=== PATIENT | male | born 1955 | race Caucasian/White ===

== ENCOUNTER 2017-03-02 10:12 | Emergency (ER) | payer MEDICARE, MEDICAID ==
[~2017-03-02] VITALS: Ht 177.8 cm; Wt 114.0 kg
[2017-03-02 10:26] VITALS: BP 143/104
[2017-03-02] MEDS ORDERED: SODIUM CHLORIDE FLUSH 10ML SYR IVF ONE (10:30)
[2017-03-02] MEDS ORDERED: ASPIRIN 81 MG TABLET CHEW PO ONE (10:30)
[2017-03-02 10:40] LABS: BASOPHILS # (AUTO) 0.04 x10^3/uL (0-0.1); BASOPHILS % (AUTO) 0 % (0-1); EOSINOPHILS # (AUTO) 0.27 x10^3/uL (0-0.4); EOSINOPHILS % (AUTO) 3 % (1-7); LYMPHOCYTES # (AUTO) 1.95 x10^3/uL (1-3.4); LYMPHOCYTES % (AUTO) 20 % (22-44); MD NO; MEAN CORPUSCULAR HEMOGLOBIN 28.4 pg (27.5-34.5); MEAN CORPUSCULAR HGB CONC 33.2 g/dL (33.2-36.2); MEAN CORPUSCULAR VOLUME 85.5 fL (81-97); MEAN PLATELET VOLUME 9.5 fL (7.4-10.4); MONOCYTES # (AUTO) 0.86 x10^3/uL (0.2-0.8); MONOCYTES % (AUTO) 9 % (2-9); NEUTROPHILS # (AUTO) 6.78 x10^3/uL (1.8-6.8); NEUTROPHILS % (AUTO) 69 % (42-75); PLATELET COUNT 246 x10^3/uL (130-400); RED BLOOD COUNT 5.58 x10^6/uL (4.38-5.82); RED CELL DISTRIBUTION WIDTH 13.9 % (9.4-14.8)
[2017-03-02 10:52] LABS: ALANINE AMINOTRANSFERASE 21 U/L (12-78); ALBUMIN 3.7 g/dL (3.4-5.0); ANION GAP 5 mmol/L (5-15); CALCIUM 8.6 mg/dL (8.5-10.1); CHLORIDE 111 mmol/L (98-107); CREATININE 0.97 mg/dL (0.7-1.3)
[2017-03-02] MEDS ORDERED: ASPIRIN 81 MG TABLET CHEW ONE (10:54)
[2017-03-02 10:56] LABS: ALKALINE PHOSPHATASE 75 U/L (45-117); BILIRUBIN,TOTAL 0.4 mg/dL (0.2-1.0); T4 (THYROXINE) 10.1 mcg/dL (4.5-12.1); TROPONIN I < 0.015 ng/mL (0.000-0.045)
[2017-03-02 11:00] LABS: MICROSCOPIC NOT IND
[2017-03-02 11:00] LABS: INTERNATIONAL NORMALIZED RATIO 0.96 (0.93-1.1)
[2017-03-02] MEDS ORDERED: PLEASE ENTER HEIGHT AND WEIGHT MC SCH (11:00)
[2017-03-02] MEDS ORDERED: PLEASE ENTER ALLERGIES MC SCH (11:00)
[2017-03-02] MEDS ORDERED: CHOL2000 PO (11:19)
[2017-03-02] MEDS ORDERED: HYDR-3307 PO (11:19)
[2017-03-02] MEDS ORDERED: AMLO5TAB2 PO (11:19)
[2017-03-02] MEDS ORDERED: ASPI-496 PO (11:19)
[2017-03-02] MEDS ORDERED: LISI40TA PO (11:19)
[2017-03-02] MEDS ORDERED: GABA800T2 PO (11:19)
[2017-03-02] MEDS ORDERED: TAMS0.4C2 PO (11:19)
[2017-03-02] MEDS ORDERED: HYDROcodone/APAP 10/325 MG TABLET ONE (11:46)
[2017-03-02] MEDS ORDERED: HYDROcodone/APAP 10/325 MG TABLET PO ONE (12:00)
[2017-03-02] MEDS ORDERED: DABIGATRAN 150 MG CAPSULE PO ONE (12:30)
== END 2017-03-02 12:52 | disposition home or self-care (01) ==
LOC: ED 10:43
DX: I48.91 Unspecified atrial fibrillation (principal); I25.10 Atherosclerotic heart disease of native coronary artery without angina pectoris; G89.29 Other chronic pain; M54.9 Dorsalgia, unspecified; I11.0 Hypertensive heart disease with heart failure; I50.9 Heart failure, unspecified
CPT/HCPCS: 36415; 71045; 80053; 81003; 83735; 83880; 84436; 84443; 84484; 85025; 85610; 85651; 85730; 93005; 99285

== ENCOUNTER → 2017-08-21 | Outpatient (CLI) | payer MEDICARE, MEDICAID ==
[~2017-08-21] MED LIST: AMLO5TAB2 PO; ASPI-496 PO; CHOL2000 PO; DABI75CA3 PO; FURO20TA3 PO; GABA800T2 PO; HYDR-3307 PO; LISI40TA PO; MAGN400T7 PO; MULT-224 PO; TAMS0.4C2 PO; TIZA4TAB PO
[2017-08-21 15:38] LABS: MICROSCOPIC NOT IND
[2017-08-21 15:44] LABS: BASOPHILS # (AUTO) 0.04 x10^3/uL (0-0.1); BASOPHILS % (AUTO) 0 % (0-1); EOSINOPHILS # (AUTO) 0.27 x10^3/uL (0-0.4); EOSINOPHILS % (AUTO) 3 % (1-7); LYMPHOCYTES # (AUTO) 1.76 x10^3/uL (1-3.4); LYMPHOCYTES % (AUTO) 18 % (22-44); MD NO; MEAN CORPUSCULAR HEMOGLOBIN 28.2 pg (27.5-34.5); MEAN CORPUSCULAR HGB CONC 32.9 g/dL (33.2-36.2); MEAN CORPUSCULAR VOLUME 85.8 fL (81-97); MEAN PLATELET VOLUME 9.4 fL (7.4-10.4); MONOCYTES # (AUTO) 0.82 x10^3/uL (0.2-0.8); MONOCYTES % (AUTO) 8 % (2-9); NEUTROPHILS # (AUTO) 7.06 x10^3/uL (1.8-6.8); NEUTROPHILS % (AUTO) 71 % (42-75); PLATELET COUNT 233 x10^3/uL (130-400); RED BLOOD COUNT 5.23 x10^6/uL (4.38-5.82); RED CELL DISTRIBUTION WIDTH 13.2 % (9.4-14.8)
[2017-08-21 15:54] LABS: HCT (SEDRATE) 44.9 % (39.2-51.8)
[2017-08-21 15:55] LABS: INTERNATIONAL NORMALIZED RATIO 0.96 (0.93-1.1)
[2017-08-21 15:56] LABS: ALANINE AMINOTRANSFERASE 29 U/L (12-78); ALBUMIN 3.5 g/dL (3.4-5.0); ANION GAP 6 mmol/L (5-15); CALCIUM 8.4 mg/dL (8.5-10.1); CHLORIDE 110 mmol/L (98-107); CREATININE 0.92 mg/dL (0.7-1.3)
[2017-08-21 15:58] LABS: ALKALINE PHOSPHATASE 76 U/L (45-117); BILIRUBIN,TOTAL 0.3 mg/dL (0.2-1.0)
== END | disposition home or self-care (01) ==
LOC: STAR 14:23 → MERGE 15:00
PROVIDERS: ATTEND Orthopaedic Surgery Orthopaedic Surgery of the Spine
DX: Z01.818 Encounter for other preprocedural examination (principal); I10 Essential (primary) hypertension; I44.4 Left anterior fascicular block; M47.817 Spondylosis without myelopathy or radiculopathy, lumbosacral region; M48.061 Spinal stenosis, lumbar region without neurogenic claudication; E65 Localized adiposity
CPT/HCPCS: 36415; 71046; 80053; 81003; 85025; 85610; 85651; 85730; 93005

== ENCOUNTER 2018-12-19 14:52 | Outpatient (CLI) | payer MEDICARE, MEDICAID ==
[~2018-12-19 14:52] MED LIST changes: +AMLO-150 PO; -AMLO5TAB2 PO; +FLUT9.9S NS; -GABA800T2 PO; +GABA800T5 PO; -HYDR-3307 PO; +HYDR-36 PO; +LISI-170 PO; -MAGN400T7 PO; +MAGN400T9 PO; -MULT-224 PO; +MULT-642 PO; -TIZA4TAB PO; +TIZA4TAB2 PO
[2018-12-19] MEDS ORDERED: potassium PO (15:20)
[2018-12-19 15:57] LABS: BASOPHILS # (AUTO) 0.04 x10^3/uL (0-0.1); BASOPHILS % (AUTO) 0 % (0-1); EOSINOPHILS # (AUTO) 0.33 x10^3/uL (0-0.4); EOSINOPHILS % (AUTO) 3 % (1-7); LYMPHOCYTES # (AUTO) 1.95 x10^3/uL (1-3.4); LYMPHOCYTES % (AUTO) 19 % (22-44); MD NO; MEAN CORPUSCULAR HEMOGLOBIN 28.8 pg (27.5-34.5); MEAN CORPUSCULAR HGB CONC 32.7 g/dL (33.2-36.2); MEAN CORPUSCULAR VOLUME 88.2 fL (81-97); MEAN PLATELET VOLUME 9.8 fL (7.4-10.4); MONOCYTES # (AUTO) 0.73 x10^3/uL (0.2-0.8); MONOCYTES % (AUTO) 7 % (2-9); NEUTROPHILS % (AUTO) 71 % (42-75); PLATELET COUNT 237 x10^3/uL (130-400); RED BLOOD COUNT 5.51 x10^6/uL (4.38-5.82); RED CELL DISTRIBUTION WIDTH 14.4 % (9.4-14.8)
[2018-12-19 15:58] LABS: HCT (SEDRATE) 48.5 % (39.2-51.8)
[2018-12-19 16:01] LABS: ALANINE AMINOTRANSFERASE 29 U/L (12-78); ALBUMIN 3.8 g/dL (3.4-5.0); ANION GAP 5 mmol/L (5-15); CALCIUM 8.7 mg/dL (8.5-10.1); CHLORIDE 111 mmol/L (98-107)
[2018-12-19 16:02] LABS: INTERNATIONAL NORMALIZED RATIO 1.13 (0.93-1.1); PROTHROMBIN TIME 11.8 Seconds (9.6-11.5)
[2018-12-19 16:03] LABS: ALKALINE PHOSPHATASE 82 U/L (45-117); BILIRUBIN,TOTAL 0.3 mg/dL (0.2-1.0); TOTAL PROTEIN 7.4 g/dL (6.4-8.2)
[2018-12-19 16:37] LABS: HEMOGLOBIN A1C 5.7 % (4.2-6.3)
== END 2018-12-19 23:59 | disposition home or self-care (01) ==
LOC: STAR 14:52
PROVIDERS: ATTEND Orthopaedic Surgery Orthopaedic Surgery of the Spine
DX: Z01.818 Encounter for other preprocedural examination (principal); M43.16 Spondylolisthesis, lumbar region; M54.16 Radiculopathy, lumbar region; F12.21 Cannabis dependence, in remission; Z87.891 Personal history of nicotine dependence
CPT/HCPCS: 36415; 80053; 83036; 85025; 85610; 85651; 85730; 93005

== ENCOUNTER 2018-12-24 07:28 | Inpatient (IN) | payer MEDICARE, MEDICAID ==
[~2018-12-24] VITALS: Ht 177.8 cm; Wt 116.5 kg
[~2018-12-24 07:28] MED LIST changes: +potassium PO
[2018-12-24] MEDS ORDERED: LACTATED RINGERS 1,000 ML IV SCH (08:15)
[2018-12-24] MEDS ORDERED: ACETAMINOPHEN 500 MG TABLET PO ONE (08:30)
[2018-12-24] MEDS ORDERED: LABETALOL 5MG/ML, 20ML IV PRN ×2 (08:30→15:30)
[2018-12-24] MEDS ORDERED: ONDANSETRON 2MG/ML, 2ML IV PRN ×2 (08:30→15:30)
[2018-12-24] MEDS ORDERED: hydrALAzine 20 MG/ML, 1ML IV PRN (08:30)
[2018-12-24] MEDS ORDERED: MEPERIDINE/PF 25MG/ML,1ML IVPush PRN (08:30)
[2018-12-24] MEDS ORDERED: DIPHENHYDRAMINE 50 MG/ML, 1ML IVPush PRN ×2 (08:30→15:30)
[2018-12-24] MEDS ORDERED: HYDROmorphone 2 MG/ML, 1ML IVPush PRN (08:30)
[2018-12-24] MEDS ORDERED: OXYcodone 5 MG/5 ML ORAL.SOL UDC PO PRN (08:30)
[2018-12-24] MEDS ORDERED: GABAPENTIN 300 MG CAPSULE PO ONE (08:30)
[2018-12-24] MEDS ORDERED: OXYcodone IR 5MG TABLET PO ONE (08:30)
[2018-12-24] MEDS ORDERED: LIDOCAINE-MPF 1%, 2ML INFIL ONE (08:30)
[2018-12-24] MEDS ORDERED: METOCLOPRAMIDE 5 MG/ML, 2ML IV PRN (08:30)
[2018-12-24] MEDS ORDERED: VANCOMYCIN PMX 1GM/200ML 200 ML IV STA (08:38)
[2018-12-24 09:05] LABS: INTERNATIONAL NORMALIZED RATIO 1.01 (0.93-1.1); PROTHROMBIN TIME 10.6 Seconds (9.6-11.5)
[2018-12-24] MEDS ORDERED: GABAPENTIN 300 MG CAPSULE ONE (09:12)
[2018-12-24] MEDS ORDERED: OXYcodone IR 5MG TABLET ONE (09:12)
[2018-12-24] MEDS ORDERED: ACETAMINOPHEN 500 MG TABLET ONE (09:12)
[2018-12-24] MEDS ORDERED: TRANEXAMIC ACID 100 MG/ML, 10ML ONE ×2 (09:35)
[2018-12-24] MEDS ORDERED: BUPIVACAINE/PF 0.5% ONE (09:35)
[2018-12-24] MEDS ORDERED: VANCOMYCIN 1,000 MG ONE (09:35)
[2018-12-24] MEDS ORDERED: THROMBIN 5,000 UNIT VIAL TP ONE (09:35)
[2018-12-24] MEDS ORDERED: EPINEPHRINE 1 MG/ML, 1ML ONE (09:35)
[2018-12-24] MEDS ORDERED: THROMBIN SPRAY 20,000 UNIT SPRAY TP ONE (09:35)
[2018-12-24] MEDS ORDERED: BACITRACIN 50,000 UNIT ONE (09:36)
[2018-12-24] MEDS ORDERED: PROPOFOL 10 MG/ML, 50ML ONE (10:02)
[2018-12-24] MEDS ORDERED: DEXAMETHASONE 4 MG/ML, 1ML ONE (10:02)
[2018-12-24] MEDS ORDERED: ROCURONIUM 10 MG/ML,10ML ONE (10:02)
[2018-12-24] MEDS ORDERED: MIDAZOLAM 1 MG/ML, 2ML ONE (10:02)
[2018-12-24] MEDS ORDERED: ONDANSETRON 2MG/ML, 2ML ONE (10:02)
[2018-12-24] MEDS ORDERED: PROPOFOL 10 MG/ML, 20ML ONE (10:02)
[2018-12-24] MEDS ORDERED: LIDOCAINE-MPF 2% ,5ML ONE (10:02)
[2018-12-24] MEDS ORDERED: SUCCINYLCHOLINE 20 MG/ML, 10ML ONE (10:02)
[2018-12-24] MEDS ORDERED: FENTANYL PF 100 MCG/2ML ONE (13:48)
[2018-12-24] MEDS ORDERED: OXYcodone 5 MG/5 ML ORAL.SOL UDC ONE (13:49)
[2018-12-24] MEDS: FENTANYL PF 100 MCG/2ML IV PRN ×2 (13:51→14:14)
[2018-12-24] MEDS ORDERED: BISACODYL 10 MG SUPP PR PRN (15:30)
[2018-12-24] MEDS ORDERED: MAGNESIUM HYDROXIDE 8%, 30ML UDC PO PRN (15:30)
[2018-12-24] MEDS ORDERED: KETOROLAC 30 MG/1 ML IV PRN (15:30)
[2018-12-24] MEDS ORDERED: PHARMACY MAY ADJ FOR RENAL FX MC PRN (15:30)
[2018-12-24] MEDS ORDERED: MORPHINE SULFATE 4 MG/ML, 1ML IV PRN (15:30)
[2018-12-24] MEDS ORDERED: DIPHENHYDRAMINE 25 MG CAPSULE PO PRN (15:30)
[2018-12-24] MEDS ORDERED: DIAZEPAM 5 MG/ML, 2ML IV PRN (15:30)
[2018-12-24] MEDS ORDERED: PROMETHAZINE 25 MG/ML, 1ML IM PRN (15:30)
[2018-12-24] MEDS ORDERED: OXYcodone IR 5MG TABLET PO PRN (15:30)
[2018-12-24] MEDS ORDERED: DIAZEPAM 5 MG TABLET PO PRN (15:30)
[2018-12-24] MEDS ORDERED: DIPHENHYDRAMINE 50 MG/ML, 1ML IM PRN (15:30)
[2018-12-24] MEDS ORDERED: ACETAMINOPHEN 500 MG TABLET PO PRN (16:00)
[2018-12-24] MEDS ORDERED: ACETAMINOPHEN 650 MG SUPP PR PRN (16:00)
[2018-12-24] MEDS ORDERED: METHOCARBAMOL 1,000 MG in DEXTROSE 5% 100 ML IV ONE (16:00)
[2018-12-24] MEDS ORDERED: DEXAMETHASONE 4 MG/ML, 1ML IV PRN (16:00)
[2018-12-24] MEDS: GABAPENTIN 400 MG CAPSULE PO SCH ×2 (17:20→21:00)
[2018-12-24] MEDS: CEFAZOLIN PMX 2GM/50ML 50 ML IVPB SCH (19:06)
[2018-12-24 20:22] VITALS: BP 119/76
[2018-12-24] MEDS: D5%-0.9% NACL+KCL 20MEQ 1,000 ML IV SCH (20:30)
[2018-12-24] MEDS ORDERED: ZOLPIDEM 5MG TABLET PO PRN (21:00)
[2018-12-24 23:50] VITALS: BP 119/78
[2018-12-25] MEDS: OXYcodone IR 5MG TABLET PO PRN (01:45)
[2018-12-25] MEDS: CEFAZOLIN PMX 2GM/50ML 50 ML IVPB SCH ×2 (01:45→23:50)
[2018-12-25 03:30] VITALS: BP 130/82
[2018-12-25] MEDS: METHOCARBAMOL 750 MG in DEXTROSE 5% 100 ML IV SCH ×3 (03:43→21:04)
[2018-12-25 04:42] LABS: MEAN CORPUSCULAR HEMOGLOBIN 28.9 pg (27.5-34.5); MEAN CORPUSCULAR HGB CONC 32.6 g/dL (33.2-36.2); MEAN CORPUSCULAR VOLUME 88.6 fL (81-97); MEAN PLATELET VOLUME 9.3 fL (7.4-10.4); PLATELET COUNT 257 x10^3/uL (130-400); RED CELL DISTRIBUTION WIDTH 14.7 % (9.4-14.8)
[2018-12-25 05:42] LABS: MD YES
[2018-12-25 05:43] LABS: <PLATELET ESTIMATE> ADEQUATE; <PLT MORPHOLOGY> NORMAL PLT MORPH; <RBC MORPHOLOGY> NORMAL; BAND#(MANUAL) 0.37 x10^3/uL; BANDS%(MANUAL) 2 % (0-7); LYMPH#(MANUAL) 1.85 x10^3/uL (1-3.4); LYMPHS% (MANUAL) 10 % (22-44); MONOS#(MANUAL) 1.11 x10^3/uL (0.3-2.7); MONOS% (MANUAL) 6 % (2-9); SEG#(MANUAL) 15.17 x10^3/uL (1.8-6.8); SEGS% (MANUAL) 82 % (42-75)
[2018-12-25] MEDS: D5%-0.9% NACL+KCL 20MEQ 1,000 ML IV SCH ×2 (05:44→16:17)
[2018-12-25 07:28] VITALS: BP 113/74
[2018-12-25] MEDS: GABAPENTIN 400 MG CAPSULE PO SCH ×3 (09:26→21:04)
[2018-12-25] MEDS: AMLODIPINE 5 MG TABLET PO SCH (09:27)
[2018-12-25] MEDS: SENNA/DOCUSATE TABLET PO SCH (09:28)
[2018-12-25] MEDS: TAMSULOSIN 0.4 MG CAP.ER.24H PO SCH (09:28)
[2018-12-25] MEDS: MAGNESIUM OXIDE 400 MG TABLET PO SCH (09:29)
[2018-12-25] MEDS: CHOLECALCIFEROL 1,000 UNIT TABLET PO SCH (09:29)
[2018-12-25] MEDS: LISINOPRIL 20 MG TABLET PO SCH (09:30)
[2018-12-25] MEDS: POTASSIUM CHLORIDE 20 MEQ TAB.ER.PRT PO SCH (09:30)
[2018-12-25] MEDS: MULTIVITAMIN 1 TABLET PO SCH (09:31)
[2018-12-25] MEDS: FUROSEMIDE 20 MG TABLET PO SCH (09:32)
[2018-12-25] MEDS: FLUTICASONE NASAL SPRAY 16GM NAS SCH (09:35)
[2018-12-25 12:24] VITALS: BP 105/71
[2018-12-25 18:58] VITALS: BP 100/66
[2018-12-25] MEDS: SODIUM CHLORIDE 0.9% 1,000ML IV PRN (22:55)
[2018-12-25] MEDS ORDERED: SODIUM CHLORIDE 0.9% 1,000ML IVBOLUS ONE (23:00)
[2018-12-25] MEDS: ACETAMINOPHEN 500 MG TABLET PO SCH (23:49)
[2018-12-26] VITALS (7 sets, daily range): BP systolic 93–115; BP diastolic 50–71
[2018-12-26] MEDS: D5%-0.9% NACL+KCL 20MEQ 1,000 ML IV SCH ×3 (02:30→20:42)
[2018-12-26] MEDS: METHOCARBAMOL 750 MG in DEXTROSE 5% 100 ML IV SCH ×3 (03:43→19:08)
[2018-12-26] MEDS: DEXAMETHASONE 4 MG/ML, 1ML IV SCH ×4 (03:44→20:45)
[2018-12-26 05:20] LABS: MEAN CORPUSCULAR HEMOGLOBIN 28.5 pg (27.5-34.5); MEAN CORPUSCULAR HGB CONC 32.4 g/dL (33.2-36.2); MEAN CORPUSCULAR VOLUME 87.8 fL (81-97); MEAN PLATELET VOLUME 10.1 fL (7.4-10.4); PLATELET COUNT 225 x10^3/uL (130-400); RED BLOOD COUNT 4.87 x10^6/uL (4.38-5.82); RED CELL DISTRIBUTION WIDTH 14.4 % (9.4-14.8)
[2018-12-26] MEDS: ACETAMINOPHEN 500 MG TABLET PO SCH ×3 (05:39→19:08)
[2018-12-26] MEDS: SODIUM CHLORIDE 0.9% 1,000ML IV PRN (05:51)
[2018-12-26 05:57] LABS: BASOPHILS # (AUTO) 0.01 x10^3/uL (0-0.1); BASOPHILS % (AUTO) 0 % (0-1); EOSINOPHILS % (AUTO) 0 % (1-7); LYMPHOCYTES # (AUTO) 1.11 x10^3/uL (1-3.4); LYMPHOCYTES % (AUTO) 6 % (22-44); MD SCAN; MONOCYTES # (AUTO) 1.72 x10^3/uL (0.2-0.8); MONOCYTES % (AUTO) 10 % (2-9); NEUTROPHILS # (AUTO) 15.15 x10^3/uL (1.8-6.8); NEUTROPHILS % (AUTO) 84 % (42-75)
[2018-12-26] MEDS: OXYcodone IR 5MG TABLET PO PRN ×3 (06:35→15:54)
[2018-12-26] MEDS: CEFAZOLIN PMX 2GM/50ML 50 ML IVPB SCH ×3 (07:20→23:12)
[2018-12-26] MEDS: GABAPENTIN 400 MG CAPSULE PO SCH ×3 (08:27→20:45)
[2018-12-26] MEDS: FLUTICASONE NASAL SPRAY 16GM NAS SCH (08:28)
[2018-12-26] MEDS: MAGNESIUM OXIDE 400 MG TABLET PO SCH (08:28)
[2018-12-26] MEDS: AMLODIPINE 5 MG TABLET PO SCH (08:28)
[2018-12-26] MEDS: MULTIVITAMIN 1 TABLET PO SCH (08:28)
[2018-12-26] MEDS: SENNA/DOCUSATE TABLET PO SCH (08:28)
[2018-12-26] MEDS: CHOLECALCIFEROL 1,000 UNIT TABLET PO SCH (08:28)
[2018-12-26] MEDS: LISINOPRIL 20 MG TABLET PO SCH (08:28)
[2018-12-26] MEDS: TAMSULOSIN 0.4 MG CAP.ER.24H PO SCH (08:28)
[2018-12-26] MEDS: FUROSEMIDE 20 MG TABLET PO SCH (08:28)
[2018-12-26] MEDS: POTASSIUM CHLORIDE 20 MEQ TAB.ER.PRT PO SCH (08:28)
[2018-12-27 00:20] VITALS: BP 103/61
[2018-12-27] MEDS: ACETAMINOPHEN 500 MG TABLET PO SCH ×4 (00:23→18:43)
[2018-12-27] MEDS: METHOCARBAMOL 750 MG TABLET PO SCH ×3 (02:00→18:43)
[2018-12-27] MEDS: DEXAMETHASONE 4 MG/ML, 1ML IV SCH ×3 (03:30→15:44)
[2018-12-27 04:41] LABS: BASOPHILS % (AUTO) 0 % (0-1); EOSINOPHILS % (AUTO) 0 % (1-7); LYMPHOCYTES # (AUTO) 1.12 x10^3/uL (1-3.4); LYMPHOCYTES % (AUTO) 7 % (22-44); MD NO; MEAN CORPUSCULAR HGB CONC 32.5 g/dL (33.2-36.2); MEAN CORPUSCULAR VOLUME 89.3 fL (81-97); MEAN PLATELET VOLUME 9.6 fL (7.4-10.4); MONOCYTES # (AUTO) 0.78 x10^3/uL (0.2-0.8); MONOCYTES % (AUTO) 5 % (2-9); NEUTROPHILS % (AUTO) 89 % (42-75); PLATELET COUNT 221 x10^3/uL (130-400); RED BLOOD COUNT 4.51 x10^6/uL (4.38-5.82); RED CELL DISTRIBUTION WIDTH 14.8 % (9.4-14.8)
[2018-12-27] MEDS: CEFAZOLIN PMX 2GM/50ML 50 ML IVPB SCH ×3 (07:32→23:30)
[2018-12-27 07:44] VITALS: BP 144/79
[2018-12-27] MEDS: D5%-0.9% NACL+KCL 20MEQ 1,000 ML IV SCH ×2 (08:30→18:30)
[2018-12-27] MEDS: FLUTICASONE NASAL SPRAY 16GM NAS SCH (08:54)
[2018-12-27] MEDS: MULTIVITAMIN 1 TABLET PO SCH (08:57)
[2018-12-27] MEDS: TAMSULOSIN 0.4 MG CAP.ER.24H PO SCH (08:57)
[2018-12-27] MEDS: FUROSEMIDE 20 MG TABLET PO SCH (08:57)
[2018-12-27] MEDS: LISINOPRIL 20 MG TABLET PO SCH (08:57)
[2018-12-27] MEDS: POTASSIUM CHLORIDE 20 MEQ TAB.ER.PRT PO SCH (08:57)
[2018-12-27] MEDS: CHOLECALCIFEROL 1,000 UNIT TABLET PO SCH (08:57)
[2018-12-27] MEDS: SENNA/DOCUSATE TABLET PO SCH (08:57)
[2018-12-27] MEDS: MAGNESIUM OXIDE 400 MG TABLET PO SCH (08:57)
[2018-12-27] MEDS: GABAPENTIN 400 MG CAPSULE PO SCH ×3 (08:57→21:40)
[2018-12-27] MEDS: AMLODIPINE 5 MG TABLET PO SCH (08:57)
[2018-12-27] MEDS: OXYcodone IR 5MG TABLET PO PRN ×3 (08:59→18:44)
[2018-12-27 13:06] VITALS: BP 143/85
[2018-12-27] MEDS ORDERED: DEXAMETHASONE 4 MG/ML, 1ML IV PRN (17:00)
[2018-12-27] MEDS: DEXAMETHASONE MC SCH (17:30)
[2018-12-27 19:06] VITALS: BP 116/67
[2018-12-28] MEDS: ACETAMINOPHEN 500 MG TABLET PO SCH ×3 (00:20→12:30)
[2018-12-28] MEDS: DEXAMETHASONE MC SCH ×2 (01:30→09:09)
[2018-12-28] MEDS: D5%-0.9% NACL+KCL 20MEQ 1,000 ML IV SCH (01:34)
[2018-12-28] MEDS: METHOCARBAMOL 750 MG TABLET PO SCH ×2 (01:44→10:16)
[2018-12-28 02:00] VITALS: BP 127/76
[2018-12-28] MEDS ORDERED: OXYC5CAP2 PO (02:15)
[2018-12-28] MEDS ORDERED: CEPH-368 PO (02:16)
[2018-12-28] MEDS ORDERED: METH750T87 PO (02:16)
[2018-12-28] MEDS: OXYcodone IR 5MG TABLET PO PRN ×2 (04:06→09:08)
[2018-12-28 05:28] LABS: BASOPHILS # (AUTO) 0.04 x10^3/uL (0-0.1); BASOPHILS % (AUTO) 0 % (0-1); EOSINOPHILS # (AUTO) 0.14 x10^3/uL (0-0.4); EOSINOPHILS % (AUTO) 1 % (1-7); LYMPHOCYTES # (AUTO) 1.51 x10^3/uL (1-3.4); LYMPHOCYTES % (AUTO) 9 % (22-44); MD NO; MEAN CORPUSCULAR HEMOGLOBIN 28.8 pg (27.5-34.5); MEAN CORPUSCULAR HGB CONC 32.3 g/dL (33.2-36.2); MEAN CORPUSCULAR VOLUME 89.1 fL (81-97); MONOCYTES # (AUTO) 0.87 x10^3/uL (0.2-0.8); MONOCYTES % (AUTO) 5 % (2-9); NEUTROPHILS # (AUTO) 14.42 x10^3/uL (1.8-6.8); NEUTROPHILS % (AUTO) 85 % (42-75); PLATELET COUNT 278 x10^3/uL (130-400); RED BLOOD COUNT 4.47 x10^6/uL (4.38-5.82); RED CELL DISTRIBUTION WIDTH 14.6 % (9.4-14.8)
[2018-12-28 07:28] VITALS: BP 139/85
[2018-12-28] MEDS: CEFAZOLIN PMX 2GM/50ML 50 ML IVPB SCH (07:41)
[2018-12-28] MEDS: FLUTICASONE NASAL SPRAY 16GM NAS SCH (09:00)
[2018-12-28] MEDS: AMLODIPINE 5 MG TABLET PO SCH (09:06)
[2018-12-28] MEDS: MULTIVITAMIN 1 TABLET PO SCH (09:06)
[2018-12-28] MEDS: POTASSIUM CHLORIDE 20 MEQ TAB.ER.PRT PO SCH (09:06)
[2018-12-28] MEDS: TAMSULOSIN 0.4 MG CAP.ER.24H PO SCH (09:06)
[2018-12-28] MEDS: CHOLECALCIFEROL 1,000 UNIT TABLET PO SCH (09:06)
[2018-12-28] MEDS: GABAPENTIN 400 MG CAPSULE PO SCH (09:06)
[2018-12-28] MEDS: SENNA/DOCUSATE TABLET PO SCH (09:06)
[2018-12-28] MEDS: MAGNESIUM OXIDE 400 MG TABLET PO SCH (09:06)
[2018-12-28] MEDS: FUROSEMIDE 20 MG TABLET PO SCH (09:07)
[2018-12-28] MEDS: LISINOPRIL 20 MG TABLET PO SCH (09:07)
[2018-12-28] MEDS ORDERED: FLU VACC QS2019-20 36MOS UP/PF 0.5 ML IM ONE (10:00)
[2018-12-28 12:15] VITALS: BP 134/78
== END 2018-12-28 12:52 | disposition home health service (06) | DRG 454 ==
LOC: ORIP 07:28 → 4NE 14:59 → DCLOUNGE 12-28 12:39
PROVIDERS: ADMIT Orthopaedic Surgery Orthopaedic Surgery of the Spine; ATTEND Orthopaedic Surgery Orthopaedic Surgery of the Spine
PROC: 0SG0071 Fusion of Lumbar Vertebral Joint with Autologous Tissue Substitute, Posterior Approach, Posterior Column, Open Approach (ICD-10-PCS; 2018-12-24)
PROC: 0SB40ZZ Excision of Lumbosacral Disc, Open Approach (ICD-10-PCS; 2018-12-24)
PROC: 01NB0ZZ Release Lumbar Nerve, Open Approach (ICD-10-PCS; 2018-12-24)
PROC: 4A11X4G Monitoring of Peripheral Nervous Electrical Activity, Intraoperative, External Approach (ICD-10-PCS; 2018-12-24)
PROC: 07DR3ZZ Extraction of Iliac Bone Marrow, Percutaneous Approach (ICD-10-PCS; 2018-12-24)
PROC: 0SG30AJ Fusion of Lumbosacral Joint with Interbody Fusion Device, Posterior Approach, Anterior Column, Open Approach (ICD-10-PCS; principal; 2018-12-24 09:30)
DX: M48.061 Spinal stenosis, lumbar region without neurogenic claudication (principal); G99.2 Myelopathy in diseases classified elsewhere; M06.9 Rheumatoid arthritis, unspecified; M47.27 Other spondylosis with radiculopathy, lumbosacral region; M43.17 Spondylolisthesis, lumbosacral region; M12.88 Other specific arthropathies, not elsewhere classified, other specified site; F41.9 Anxiety disorder, unspecified; I10 Essential (primary) hypertension; N40.0 Benign prostatic hyperplasia without lower urinary tract symptoms; Z88.0 Allergy status to penicillin; Z88.8 Allergy status to other drugs, medicaments and biological substances; I95.9 Hypotension, unspecified
CPT/HCPCS: 36415; 72100; 85025; 85379; 85610; 85730; 86850; 86900; 90686; C1713; G0378; J0171; J0690; J1100; J2250; J2270; J2405; J2704; J3010; J3370; C1760; C1762; C1763; C9362; J0330; J2800; J7030; J7120

== ENCOUNTER 2020-06-19 08:25 | Observation (INO) | payer MEDICARE, MEDICAID ==
[2020-06-18 13:52] LABS: BASOPHILS % (AUTO) 1 % (0-1); EOSINOPHILS % (AUTO) 0 % (1-7); LYMPHOCYTES % (AUTO) 12 % (22-44); MEAN CORPUSCULAR HEMOGLOBIN 28.3 pg (27.5-34.5); MEAN CORPUSCULAR HGB CONC 33.2 g/dL (33.2-36.2); MEAN PLATELET VOLUME 9.7 fL (7.4-10.4); MONOCYTES % (AUTO) 5 % (2-9); NEUTROPHILS % (AUTO) 82 % (42-75); PLATELET COUNT 268 x10^3/uL (130-400); RED BLOOD COUNT 5.76 x10^6/uL (4.38-5.82); RED CELL DISTRIBUTION WIDTH 14.4 % (9.4-14.8)
[2020-06-18 14:03] LABS: PROTHROMBIN TIME 10.7 Seconds (9.6-11.5)
[2020-06-18 14:05] LABS: CHLORIDE 107 mmol/L (98-107)
[2020-06-18 14:14] LABS: ALANINE AMINOTRANSFERASE 27 U/L (12-78); ALBUMIN 3.9 g/dL (3.4-5.0); ALKALINE PHOSPHATASE 100 U/L (45-117); ANION GAP 5 mmol/L (5-15); BILIRUBIN,TOTAL 0.6 mg/dL (0.2-1.0); CALCIUM 9.3 mg/dL (8.5-10.1); CREATININE 0.83 mg/dL (0.7-1.3); TOTAL PROTEIN 7.7 g/dL (6.4-8.2)
[2020-06-18 14:39] LABS: HCT (SEDRATE) 49.1 % (39.2-51.8)
[~2020-06-19] VITALS: Ht 177.8 cm; Wt 101.5 kg
[~2020-06-19 08:25] MED LIST changes: +CEPH-368 PO; +CHOL10003 PO; +DABI150C PO; +FURO-92 PO; +HYDR-3248 PO; -HYDR-36 PO; -LISI40TA PO; +LISI40TA9 PO; +LORA10TA75 PO; +METH750T87 PO; +NITR0.4T28 SL; +OXYC5CAP2 PO; +POTA20TA89 PO
[2020-06-19] MEDS ORDERED: VANCOMYCIN PMX 1GM/200ML 200 ML IV ONE (09:00)
[2020-06-19] MEDS ORDERED: OXYcodone 5 MG/5 ML ORAL.SOL UDC PO ONE (09:00)
[2020-06-19] MEDS ORDERED: CHLORHEXIDINE 15 ML UDC ONE (09:00)
[2020-06-19] MEDS ORDERED: VANCOMYCIN 1,000 MG in SODIUM CHLORIDE 0.9% 250 ML IV ONE (09:00)
[2020-06-19] MEDS ORDERED: CHLORHEXIDINE 15 ML UDC PO ONE (09:00)
[2020-06-19] MEDS ORDERED: LACTATED RINGERS 1,000 ML IV SCH (09:30)
[2020-06-19] MEDS ORDERED: LABETALOL 5MG/ML, 20ML IV PRN (10:00)
[2020-06-19] MEDS ORDERED: hydrALAzine 20 MG/ML, 1ML IV PRN (10:00)
[2020-06-19] MEDS ORDERED: PROMETHAZINE 25 MG/ML, 1ML IVPush PRN (10:00)
[2020-06-19] MEDS ORDERED: FENTANYL PF 250 MCG/5ML ONE (10:00)
[2020-06-19] MEDS ORDERED: HALOPERIDOL 5 MG/ML IV PRN (10:00)
[2020-06-19] MEDS ORDERED: DIPHENHYDRAMINE 50 MG/ML, 1ML IVPush PRN ×2 (10:00→13:00)
[2020-06-19] MEDS ORDERED: OXYcodone 5 MG/5 ML ORAL.SOL UDC PO PRN (10:00)
[2020-06-19] MEDS ORDERED: MEPERIDINE/PF 25MG/0.5ML IVPush PRN (10:00)
[2020-06-19] MEDS ORDERED: ACETAMINOPHEN 325 MG TABLET PO PRN (10:00)
[2020-06-19] MEDS ORDERED: MIDAZOLAM 1 MG/ML, 2ML ONE (10:00)
[2020-06-19] MEDS ORDERED: EPINEPHRINE 1 MG/ML, 1ML ONE (10:05)
[2020-06-19] MEDS ORDERED: BUPIVACAINE/PF 0.5% ONE (10:05)
[2020-06-19] MEDS ORDERED: BACITRACIN 50,000 UNIT ONE (10:05)
[2020-06-19] MEDS ORDERED: TRANEXAMIC ACID 100 MG/ML, 10ML ONE ×2 (10:05)
[2020-06-19] MEDS ORDERED: GABAPENTIN 300 MG CAPSULE ONE (10:43)
[2020-06-19] MEDS ORDERED: GABAPENTIN 300 MG CAPSULE PO ONE (11:00)
[2020-06-19] MEDS ORDERED: GABAPENTIN 400 MG CAPSULE PO ONE (11:00)
[2020-06-19] MEDS ORDERED: VANCOMYCIN 1,000 MG IM ONE (11:40)
[2020-06-19] MEDS ORDERED: HYDROmorphone 1 MG/ML, 1ML INJ ONE ×2 (12:08→12:37)
[2020-06-19] MEDS ORDERED: ROCURONIUM 10MG/ML,5ML ONE (12:14)
[2020-06-19] MEDS ORDERED: PROPOFOL 10 MG/ML, 20ML ONE (12:14)
[2020-06-19] MEDS ORDERED: DEXAMETHASONE 4 MG/ML, 1ML ONE (12:14)
[2020-06-19] MEDS ORDERED: CEFAZOLIN 1,000 MG ONE (12:14)
[2020-06-19] MEDS ORDERED: GLYCOPYRROLATE 0.2MG/1ML, 5ML ONE (12:14)
[2020-06-19] MEDS ORDERED: SUCCINYLCHOLINE 20 MG/ML, 10ML ONE (12:14)
[2020-06-19] MEDS ORDERED: NEOSTIGMINE 1 MG/ML, 10ML ONE (12:14)
[2020-06-19] MEDS ORDERED: ONDANSETRON 2MG/ML, 2ML ONE (12:14)
[2020-06-19] MEDS ORDERED: FENTANYL PF 100 MCG/2ML ONE (12:36)
[2020-06-19] MEDS ORDERED: OXYcodone 5 MG/5 ML ORAL.SOL UDC ONE (12:37)
[2020-06-19] MEDS: FENTANYL PF 100 MCG/2ML IV PRN ×2 (12:41→12:50)
[2020-06-19] MEDS ORDERED: OXYcodone IR 5MG TABLET PO PRN (13:00)
[2020-06-19] MEDS ORDERED: ONDANSETRON 2MG/ML, 2ML IV PRN (13:00)
[2020-06-19] MEDS ORDERED: DEXAMETHASONE 4 MG/ML, 5ML IVPush PRN (13:00)
[2020-06-19] MEDS ORDERED: LORazepam 1MG TABLET PO PRN (13:00)
[2020-06-19] MEDS ORDERED: MAGNESIUM HYDROXIDE 8%, 30ML UDC PO PRN (13:00)
[2020-06-19] MEDS ORDERED: HYDROcodone/APAP 5/325 TABLET PO PRN (13:00)
[2020-06-19] MEDS ORDERED: BISACODYL 10 MG SUPP PR PRN (13:00)
[2020-06-19] MEDS ORDERED: KETOROLAC 30 MG/1 ML IVPush ONE (13:00)
[2020-06-19] MEDS: METHOCARBAMOL 1,000 MG in DEXTROSE 5% 100 ML IV SCH ×2 (13:00→21:10)
[2020-06-19] MEDS ORDERED: KETOROLAC 30 MG/1 ML IVPush PRN ×2 (13:00)
[2020-06-19] MEDS ORDERED: METHOCARBAMOL 1,000 MG in DEXTROSE 5% 100 ML IV ONE (13:00)
[2020-06-19] MEDS ORDERED: DIPHENHYDRAMINE 50 MG/ML, 1ML IM PRN (13:00)
[2020-06-19] MEDS ORDERED: ACETAMINOPHEN 500 MG TABLET PO PRN (13:00)
[2020-06-19] MEDS ORDERED: morphine SULFATE 10 MG/ML, 1ML IVPush PRN (13:00)
[2020-06-19] MEDS ORDERED: LABETALOL 5MG/ML, 20ML IVPush PRN (13:00)
[2020-06-19] MEDS ORDERED: DIAZEPAM 5 MG TABLET PO PRN (13:00)
[2020-06-19] MEDS ORDERED: SENNA/DOCUSATE TABLET PO PRN (13:00)
[2020-06-19] MEDS ORDERED: SODIUM CHLORIDE 0.9% 1,000 ML IV PRN (13:00)
[2020-06-19] MEDS ORDERED: HYDROmorphone 2MG TABLET PO PRN (13:00)
[2020-06-19] MEDS ORDERED: DIPHENHYDRAMINE 50 MG CAPSULE PO PRN (13:00)
[2020-06-19] MEDS ORDERED: PROMETHAZINE 25 MG/ML, 1ML IM PRN (13:00)
[2020-06-19] MEDS: HYDROmorphone 1 MG/ML, 1ML INJ IVPush PRN ×2 (13:06→13:21)
[2020-06-19] MEDS: OXYcodone IR 5MG TABLET PO PRN ×3 (15:57→22:21)
[2020-06-19] MEDS: NS + 20MEQ KCL 1,000 ML IV SCH (15:57)
[2020-06-19] MEDS: DICLOFENAC SODIUM 75 MG TABLET.DR PO SCH (18:30)
[2020-06-19 19:07] VITALS: BP 127/86
[2020-06-19] MEDS: CEFAZOLIN PMX 1GM/50ML 50 ML IVPB SCH (19:39)
[2020-06-19] MEDS ORDERED: NITROGLYCERIN 0.4 MG BOTTLE (25 TABS) SL PRN (20:00)
[2020-06-19] MEDS ORDERED: ZOLPIDEM 5MG TABLET PO PRN (21:00)
[2020-06-19] MEDS: MAGNESIUM OXIDE 400 MG TABLET PO SCH (21:11)
[2020-06-19] MEDS: GABAPENTIN 400 MG CAPSULE PO SCH (21:11)
[2020-06-20 00:09] VITALS: BP 109/71
[2020-06-20] MEDS: OXYcodone IR 5MG TABLET PO PRN ×5 (01:37→14:09)
[2020-06-20] MEDS: CEFAZOLIN PMX 1GM/50ML 50 ML IVPB SCH (04:24)
[2020-06-20 04:38] VITALS: BP 115/71
[2020-06-20] MEDS: NS + 20MEQ KCL 1,000 ML IV SCH (05:10)
[2020-06-20] MEDS: METHOCARBAMOL 1,000 MG in DEXTROSE 5% 100 ML IV SCH ×2 (05:10→13:00)
[2020-06-20 06:50] VITALS: BP 112/77
[2020-06-20] MEDS: DICLOFENAC SODIUM 75 MG TABLET.DR PO SCH (07:45)
[2020-06-20] MEDS: GABAPENTIN 400 MG CAPSULE PO SCH (07:47)
[2020-06-20] MEDS: MAGNESIUM OXIDE 400 MG TABLET PO SCH (08:44)
[2020-06-20] MEDS ORDERED: FLUTICASONE NASAL SPRAY 16GM NAS SCH (09:00)
[2020-06-20] MEDS ORDERED: FUROSEMIDE 40 MG TABLET PO SCH (09:00)
[2020-06-20] MEDS ORDERED: CHOLECALCIFEROL 1,000 UNIT TABLET PO SCH (09:00)
[2020-06-20] MEDS ORDERED: POTASSIUM CHLORIDE 20 MEQ TAB.ER.PRT PO SCH (09:00)
[2020-06-20] MEDS ORDERED: LISINOPRIL 20 MG TABLET PO SCH (09:00)
[2020-06-20] MEDS ORDERED: CEPH750C9 PO (13:18)
[2020-06-20] MEDS ORDERED: METH-640 PO (13:19)
[2020-06-20] MEDS ORDERED: OXYC5CAP2 PO (13:20)
[2020-06-21] MEDS ORDERED: METHOCARBAMOL 750 MG TABLET PO SCH (13:00)
== END 2020-06-20 14:35 | disposition home or self-care (01) ==
LOC: OUT 08:25 → ORIP 12:38 → INTOOBSV 12:38 → 4NE 14:00 → DCLOUNGE 06-20 14:25 → UNDODISIN 06-20 14:35
PROVIDERS: ADMIT Orthopaedic Surgery Orthopaedic Surgery of the Spine; ATTEND Orthopaedic Surgery Orthopaedic Surgery of the Spine
DX: T84.84XA Pain due to internal orthopedic prosthetic devices, implants and grafts, initial encounter (principal); Z20.822 Contact with and (suspected) exposure to COVID-19; I25.119 Atherosclerotic heart disease of native coronary artery with unspecified angina pectoris; I10 Essential (primary) hypertension; M06.9 Rheumatoid arthritis, unspecified; G89.29 Other chronic pain; F41.9 Anxiety disorder, unspecified; Y83.1 Surgical operation with implant of artificial internal device as the cause of abnormal reaction of the patient, or of later complication, without mention of misadventure at the time of the procedure; Z88.0 Allergy status to penicillin; Z79.899 Other long term (current) drug therapy
CPT/HCPCS: 20680; 22830; 36415; 71046; 72100; 80053; 83036; 85014; 85025; 85610; 85651; 85730; 86850; 86900; 93005; 96361; 96365; 96366; 96367; 96375; 97161; 97165; C9362; G0378; J0171; J0330; J0690; J1100; J1170; J1885; J2250; J2405; J2704; J2710; J2800; J3010; J3370; J3480; J7050; J7120; S0020; U0003; U0005